=== PATIENT | female | born 1985 | race Caucasian/White ===

== ENCOUNTER 2017-04-12 06:32 | Emergency (ER) | payer OTHER ==
[~2017-04-12] VITALS: Ht 170.2 cm; Wt 137.4 kg
[2017-04-12 06:38] VITALS: Ht 170.2 cm; Wt 137.4 kg
[2017-04-12 08:06] LABS: CALCIUM 8.6 mg/dL (8.5-10.1); CHLORIDE SERUM 106 mmol/L (98-107); CREATININE SERUM 0.7 mg/dL (0.6-1.0); GFR1 > 60 mL/min; GLUCOSE SERUM 122 mg/dL (74-106); POTASSIUM SERUM 3.7 mmol/L (3.5-5.1); SODIUM SERUM 142 mmol/L (136-145)
[2017-04-12 08:11] LABS: ALKALINE PHOSPHATASE 72 U/L (46-116); ALT/SGPT 49 U/L (14-59); AST/SGOT 27 U/L (15-37); BILIRUBIN TOTAL 0.25 mg/dL (0.20-1.00); TOTAL PROTEIN, SERUM 7.5 g/dL (6.4-8.2)
[2017-04-12 08:12] LABS: ALBUMIN 3.3 g/dL (3.4-5.0)
[2017-04-12 08:16] LABS: UA SPECIFIC GRAVITY 1.025 (1.005-1.035); microscopic required? YES; urine erythrocyte TRACE (NEGATIVE)
[2017-04-12 08:23] LABS: BASOPHIL % 0.3 % (0-2); PLATELET COUNT 260 x10^3mcL (130-400); RED CELL DISTRIBUTION WIDTH 14.3 % (11.5-14.5)
[2017-04-12 08:51] VITALS: BP 135/88
== END 2017-04-12 08:51 | disposition home or self-care (01) ==
LOC: ED 06:32
PROVIDERS: Emergency Medicine
DX: N83.292 Other ovarian cyst, left side (principal); N39.0 Urinary tract infection, site not specified; I10 Essential (primary) hypertension
CPT/HCPCS: 36415; J1885